=== PATIENT | male | born 1975 | race Caucasian/White ===

== ENCOUNTER → 2017-01-11 | Outpatient (REF) | payer OTHER ==
[~2017-01-11] MED LIST: CELE40TA PO; CIPR-249 PO; FLAG500T PO; IBUP80TA PO; PERC5TAB12 PO; SULF-216 PO; TYLE325T5 PO
[2017-01-11 12:45] LABS: MEAN CORPUSCULAR HEMOGLOBIN 31.2 pg (27.0-33.0); MEAN CORPUSCULAR HGB CONC 34.5 g/dl (32.0-36.5); MEAN CORPUSCULAR VOLUME 90.3 fl (80.0-96.0); RED CELL DISTRIBUTION WIDTH 13.3 % (11.5-14.5); WHITE BLOOD COUNT 7.5 K/mm3 (4.0-10.0)
[2017-01-11 13:00] LABS: ALBUMIN 3.9 GM/DL (3.2-5.2); ALBUMIN/GLOBULIN RATIO 1.18 (1.00-1.93); ALKALINE PHOSPHATASE 64 U/L (45-117); ANION GAP 9 MEQ/L (8-16); AST/SGOT 44 U/L (15-37); BILIRUBIN,TOTAL 0.3 MG/DL (0.2-1.0); BLOOD UREA NITROGEN 10 MG/DL (7-18); CALCIUM LEVEL 8.1 MG/DL (8.5-10.1); CARBON DIOXIDE LEVEL 27 MEQ/L (21-32); CHLORIDE LEVEL 104 MEQ/L (98-107); CHOLESTEROL LEVEL 194 MG/DL (<200); CREATININE FOR GFR 0.97 MG/DL (0.70-1.30); GLOMERULAR FILTRATION RATE > 60.0 (>60); GLUCOSE, FASTING 137 MG/DL (70-105); POTASSIUM SERUM 4.3 MEQ/L (3.5-5.1); SODIUM LEVEL 140 MEQ/L (136-145); TOTAL PROTEIN 7.2 GM/DL (6.4-8.2); TRIGLYCERIDES LEVEL 796 MG/DL (<150)
[2017-01-11 13:13] LABS: ALT/SGPT 107 U/L (12-78)
== END ==
LOC: M SFHCADAM 08:42
PROVIDERS: ATTEND Family Medicine
DX: R10.32 Left lower quadrant pain (principal); K76.0 Fatty (change of) liver, not elsewhere classified; R53.83 Other fatigue

== ENCOUNTER → 2017-01-17 | Outpatient (REF) | payer OTHER ==
[2017-01-17 13:59] LABS: ANION GAP 10 MEQ/L (8-16); BLOOD UREA NITROGEN 19 MG/DL (7-18); CALCIUM LEVEL 8.6 MG/DL (8.5-10.1); CARBON DIOXIDE LEVEL 27 MEQ/L (21-32); CHLORIDE LEVEL 105 MEQ/L (98-107); CREATININE FOR GFR 0.93 MG/DL (0.70-1.30); GLOMERULAR FILTRATION RATE > 60.0 (>60); GLUCOSE, FASTING 101 MG/DL (70-105); POTASSIUM SERUM 4.4 MEQ/L (3.5-5.1); SODIUM LEVEL 142 MEQ/L (136-145)
== END ==
LOC: M SFHCADAM 12:35
PROVIDERS: ATTEND Family Medicine
DX: R73.9 Hyperglycemia, unspecified (principal)

== ENCOUNTER 2017-03-25 11:00 | Day surgery (SDC) | payer OTHER ==
[~2017-03-25] VITALS: Ht 185.4 cm; Wt 122.5 kg
[2017-03-25] MEDS ORDERED: metroNIDAZOLE 500 MG in APPROPRIATE DILUENT 1 EA IV ONE (11:45)
[2017-03-25] MEDS ORDERED: LR 1,000 ML IV ONE (11:45)
[2017-03-25] MEDS ORDERED: fentaNYL 100 MCG/2 ML INJECTION (J3010) As Ordered ONE (13:44)
[2017-03-25] MEDS ORDERED: MIDAZOLAM INJ 2 MG/2 ML VIAL (J2250) As Ordered ONE ×2 (13:44→14:12)
[2017-03-25] MEDS ORDERED: LIDOCAINE W/EPINEPHRINE 1% 20ML VIAL As Ordered ONE (13:50)
[2017-03-25] MEDS ORDERED: BUPIVACAINE LIPOSOME/PF 1.3% 20 ML VIAL (13.3MG/ML)(EXPAREL) As Ordered ONE (14:47)
[2017-03-25] MEDS ORDERED: PROPOFOL 200 MG/20 ML VIAL As Ordered ONE (14:57)
[2017-03-25] MEDS ORDERED: LIDOCAINE 2% INJ 100 MG/5 ML SDV (FOR ANES.) As Ordered ONE (14:57)
--- NOTE | 2017-03-25 15:06 | ROOPDOC ---
[facility] Report Of Operation Report of Operation DATE OF PROCEDURE: 03/25/17 PREPROCEDURE DIAGNOSES: recurrent perianal/perirectal abscess, possible anal fistula POSTPROCEDURE DIAGNOSES: same, granuloma from previous abscess sites but no fistula found PROCEDURE: Exam under anesthesia, Debridement granuloma from previous abscess site SURGEON: Jorge Chavez MD AD TERMINAL MAKEUP OPERATOR: ANESTHESIA: spinal ESTIMATED BLOOD LOSS: Approximately 10 mL. COMPLICATIONS: none REMARKS: 41 male who has had a previous deep right sided rectal abscess in 2015 , and has had recurrent left sided abscess and vague rectal pains since then. Patient is suspected to may have an anal fistula. He is brought in to the OR for exam under anesthesia PROCEDURE NOTE: 3 areas where he has had abscess is located from the scar/ hardening of skin and subcutaneous tissue is noted. The most recent one at the anterolateral area on the left where he reports he has had blood come out. Two areas on the right had scarring/granuloma underneath that was debrided and skin left open. DESCRIPTION OF PROCEDURE: Patient was given a dose of Flagyl 500 mg IV for wound prophylaxis. He was brought to the operating room. Spinal anesthesia given and tested in the room. He was then placed in the prone jackknife position. SCD boots and TEDS placed for DVT prophylaxis Nylon tapes placed on his buttocks to stretch and expose the anal verge. The perianal area was then prepped and draped in the usual sterile fashion. On external examination of the anal verge there were 2 areas on the right side where there is punctate pea-sized hardening subcutaneously. Over towards the left side it is a slightly thinned darkened skin were on my previous exam I thought he had a small hematoma present at the area. This was about 2-3 cm away from the anal opening. When all 3 areas there were no skin opening or granulation. The involved speculum was placed in a circumferentially examined the area of the dentate line to see if there were any obvious internal openings of the fistula and none was found. I then palpated the under direct visualization on the distal rectal area where he had a previous deep abscess back in 2014 and I do not see any induration or felt any fluctuance. At this point I opened up all the 3 areas on the skin were assigned noted the above abnormalities and more he had previous abscesses developed. There were some small subcutaneous tissue hardening on the right side either some scar tissue or granuloma formation but beyond this I did not see any tract going into the anal opening. This was further debrided and curetted and then left open. Similarly on the left side I opened up the skin where there was a previous either hematoma or abscess without recently developed. Again after removing that then portion of the skin there was no obvious ongoing inflammation or fistulous tract that I could find. I again went back with the anal speculum and inspected the sidewalls of the anal canal at the dentate line were I would expect an internal opening based on those 3 areas that I unroofed and opened up and no active inflammation, granulation or fistulous opening was found. At this point a contaminated procedure. Of the facet denies gauze was placed over the anal verge covering all the 3 open wounds. Bulky gauze dressing and postop underwear was then placed and used to cover the incision and catch expected drainage. Patient was then promptly awakened, transferred to the stretcher and brought to recovery room stable BUCK CHAVEZ MD Mar 25, 2017 15:06
[2017-03-25] MEDS ORDERED: fentaNYL 100 MCG/2 ML INJECTION (J3010) IV PRN (15:30)
[2017-03-25] MEDS ORDERED: LR 1,000 ML IV SCH (15:30)
[2017-03-25] MEDS ORDERED: ONDANSETRON 4MG/2ML VIAL (J2405) IV PRN (15:30)
[2017-03-25] MEDS ORDERED: METOCLOPRAMIDE INJ 10MG/2ML VIAL (J2765) IV PRN (15:30)
[2017-03-25] MEDS ORDERED: NORCO, ANEXSIA 5/325MG TABLET (HYDROcodone/ACETAMINOPHEN) PO PRN (15:30)
[2017-03-25] MEDS ORDERED: PERCOCET 5MG/325MG TAB PO PRN (15:30)
[2017-03-25 18:00] VITALS: BP 141/76
== END 2017-03-25 18:05 | disposition home or self-care (01) ==
LOC: M SDC 11:00
PROVIDERS: ATTEND Surgery
DX: L92.9 Granulomatous disorder of the skin and subcutaneous tissue, unspecified (principal); F41.9 Anxiety disorder, unspecified; F32.9 Major depressive disorder, single episode, unspecified; Z79.899 Other long term (current) drug therapy; F17.210 Nicotine dependence, cigarettes, uncomplicated
CPT/HCPCS: 11042; J2250; J3010

== ENCOUNTER → 2017-08-18 | Outpatient (REF) | payer OTHER ==
[2017-08-18 13:23] LABS: ALBUMIN 4.2 GM/DL (3.2-5.2); ALBUMIN/GLOBULIN RATIO 1.17 (1.00-1.93); ALKALINE PHOSPHATASE 63 U/L (45-117); ALT/SGPT 116 U/L (12-78); ANION GAP 8 MEQ/L (8-16); AST/SGOT 46 U/L (7-37); BILIRUBIN,TOTAL 0.4 MG/DL (0.2-1.0); BLOOD UREA NITROGEN 12 MG/DL (7-18); CARBON DIOXIDE LEVEL 29 MEQ/L (21-32); CHLORIDE LEVEL 102 MEQ/L (98-107); CHOLESTEROL LEVEL 208 MG/DL (<200); CHOLESTEROL RISK RATIO 5.942 (<5); CREATININE FOR GFR 0.89 MG/DL (0.70-1.30); GLOMERULAR FILTRATION RATE > 60.0 (>60); GLUCOSE, FASTING 116 MG/DL (70-100); HDL CHOLESTEROL 35 MG/DL (>40); LDL CHOLESTEROL 104.2 MG/DL (<100); NON-HDL-C 173 MG/DL; POTASSIUM SERUM 4.8 MEQ/L (3.5-5.1); SODIUM LEVEL 139 MEQ/L (136-145); TOTAL PROTEIN 7.8 GM/DL (6.4-8.2); TRIGLYCERIDES LEVEL 344 MG/DL (<150)
[2017-08-18 13:40] LABS: ESTIMATED AVERAGE GLUCOSE 128 MG/DL (60-110); HEMOGLOBIN A1c 6.1 %
== END ==
LOC: M SFHCADAM 08:37
DX: E78.1 Pure hyperglyceridemia (principal); R73.03 Prediabetes

== ENCOUNTER 2017-10-21 13:56 | Emergency (ER) | payer OTHER ==
[2017-10-21 14:42] LABS: BASO % 0.2 % (0.0-1.0); EOS # 0.1 10^3/uL (0.0-0.50); HEMATOCRIT 41.5 % (42.0-52.0); HEMOGLOBIN 14.4 g/dl (13.5-17.5); IMMATURE GRANULOCYTE % 0.2 % (0-3.0); LYMPH # 1.6 10^3/uL (1.5-4.5); LYMPH % 15.9 % (24.0-44.0); MEAN CORPUSCULAR HEMOGLOBIN 29.9 pg (27.0-33.0); MEAN CORPUSCULAR HGB CONC 34.7 g/dl (32.0-36.5); MEAN CORPUSCULAR VOLUME 86.3 fl (80.0-96.0); MONO # 1.3 10^3/uL (0.0-0.8); MONO % 12.3 % (0.0-5.0); NEUTROPHILS # 7.2 10^3/uL (1.8-7.7); NEUTROPHILS % 70.4 % (36.0-66.0); PLATELET COUNT, AUTOMATED 176 10^3/uL (150-450); RED BLOOD COUNT 4.81 10^6/uL (4.30-6.10); RED CELL DISTRIBUTION WIDTH 13.2 % (11.5-14.5); WHITE BLOOD COUNT 10.2 10^3/uL (4.0-10.0)
[2017-10-21 15:03] LABS: ANION GAP 7 MEQ/L (8-16); BLOOD UREA NITROGEN 14 MG/DL (7-18); CALCIUM LEVEL 8.5 MG/DL (8.5-10.1); CARBON DIOXIDE LEVEL 26 MEQ/L (21-32); CHLORIDE LEVEL 106 MEQ/L (98-107); CREATININE FOR GFR 0.85 MG/DL (0.70-1.30); GLOMERULAR FILTRATION RATE > 60.0 (>60); GLUCOSE, FASTING 81 MG/DL (70-100); POTASSIUM SERUM 4.1 MEQ/L (3.5-5.1); SODIUM LEVEL 139 MEQ/L (136-145)
[2017-10-21 15:06] LABS: LACTIC ACID SEPSIS PROTOCOL 0.9 MMOL/L (0.4-2.0)
== END 2017-10-21 16:55 | disposition home or self-care (01) ==
LOC: M ED 13:56
DX: L03.90 Cellulitis, unspecified (principal); R59.0 Localized enlarged lymph nodes; I45.19 Other right bundle-branch block; K61.1 Rectal abscess; Z79.899 Other long term (current) drug therapy
CPT/HCPCS: 93005

== ENCOUNTER → 2018-09-04 | Outpatient (CLI) | payer BC, OTHER ==
[~2018-09-04] MED LIST changes: +BACT800T5 PO; +VARE1TA
--- NOTE | 2018-09-04 14:04 | REP ---
Left hand series: Four views. History: Pain. Findings: Four views of the left hand demonstrate overall normal mineralization. No fracture is seen. There is no evidence of arthropathy. Impression: Negative radiographs of the left hand. Electronically Signed by Link Garcia MD 09/04/2018 01:55 P
== END ==
LOC: M WUC 12:05
PROVIDERS: ATTEND Physician Assistant
DX: M79.642 Pain in left hand (principal)

== ENCOUNTER → 2019-01-29 | Outpatient (REF) | payer OTHER, SELFPAY ==
[2019-01-29 15:09] LABS: HEMATOCRIT 45.8 % (42.0-52.0); MEAN CORPUSCULAR HEMOGLOBIN 31.5 pg (27.0-33.0); MEAN CORPUSCULAR HGB CONC 34.9 g/dl (32.0-36.5); MEAN CORPUSCULAR VOLUME 90.2 fl (80.0-96.0); PLATELET COUNT, AUTOMATED 222 10^3/uL (150-450); RED BLOOD COUNT 5.08 10^6/uL (4.30-6.10); WHITE BLOOD COUNT 9.6 10^3/uL (4.0-10.0)
[2019-01-29 15:41] LABS: ALBUMIN 4.1 GM/DL (3.2-5.2); ALT/SGPT 58 U/L (12-78); BILIRUBIN,TOTAL 0.3 MG/DL (0.2-1.0); BLOOD UREA NITROGEN 18 MG/DL (7-18); CALCIUM LEVEL 9.2 MG/DL (8.5-10.1); CARBON DIOXIDE LEVEL 29 MEQ/L (21-32); CHLORIDE LEVEL 106 MEQ/L (98-107); CHOLESTEROL LEVEL 207 MG/DL (<200); CHOLESTEROL RISK RATIO 7.666 (<5); CREATININE FOR GFR 0.89 MG/DL (0.70-1.30); FREE T4 0.97 NG/DL (0.76-1.46); GLOMERULAR FILTRATION RATE > 60.0 (>60); GLUCOSE, FASTING 74 MG/DL (70-100); HDL CHOLESTEROL 27 MG/DL (>40); LDL CHOLESTEROL 111 MG/DL (<100); NON-HDL-C 180 MG/DL; POTASSIUM SERUM 4.7 MEQ/L (3.5-5.1); SODIUM LEVEL 141 MEQ/L (136-145); TOTAL PROTEIN 7.2 GM/DL (6.4-8.2); TRIGLYCERIDES LEVEL 346 MG/DL (<150)
[2019-01-31 14:07] LABS: Lyme Disease IgG/IgM Antibodie <0.91 ISR (0.00-0.90); Lyme Disease IgM Ab Quantitati <0.80 index (0.00-0.79)
== END ==
LOC: M SFHCADAM 12:11
PROVIDERS: ATTEND Family Medicine
DX: E78.1 Pure hyperglyceridemia (principal); R73.03 Prediabetes; E78.49 Other hyperlipidemia; K61.1 Rectal abscess; S30.861A Insect bite (nonvenomous) of abdominal wall, initial encounter; W57.XXXA Bitten or stung by nonvenomous insect and other nonvenomous arthropods, initial encounter; Y92.9 Unspecified place or not applicable; Y93.9 Activity, unspecified

== ENCOUNTER → 2019-04-10 | Outpatient (REF) | payer OTHER ==
[2019-04-17 00:14] LABS: ANCA-ATYPICAL <1:20 titer (Neg:<1:20); ANTI-SACCHAROMYCES CEREV. IgA <20.0 Units (0.0-24.9); ANTI-SACCHAROMYCES CEREV. IgG <20.0 Units (0.0-24.9); CYTOPLASMIC NEUTROP AB ANCA-C <1:20 titer (Neg:<1:20); PERINUCLEAR AB ANCA-P <1:20 titer (Neg:<1:20)
== END ==
LOC: M LABDRWAD 19:17
PROVIDERS: ATTEND Specialist
DX: K59.1 Functional diarrhea (principal); K62.5 Hemorrhage of anus and rectum

== ENCOUNTER 2019-06-04 10:39 | Emergency (ER) | payer BC, OTHER ==
[~2019-06-04] VITALS: Ht 185.4 cm; Wt 121.1 kg
[2019-06-04 11:32] LABS: BASO % 0.2 % (0.0-1.0); EOS # 0.2 10^3/uL (0.0-0.5); EOS % 1.3 % (0.0-3.0); HEMATOCRIT 42.1 % (42.0-52.0); HEMOGLOBIN 14.3 g/dl (13.5-17.5); LYMPH # 1.4 10^3/uL (1.5-5.0); LYMPH % 10.5 % (24.0-44.0); MEAN CORPUSCULAR VOLUME 88.4 fl (80.0-96.0); MONO # 1.6 10^3/uL (0.0-0.8); MONO % 12.4 % (0.0-5.0); NEUTROPHILS # 9.6 10^3/uL (1.5-8.5); NEUTROPHILS % 75.3 % (36.0-66.0); PLATELET COUNT, AUTOMATED 203 10^3/uL (150-450); RED BLOOD COUNT 4.76 10^6/uL (4.30-6.10); WHITE BLOOD COUNT 12.8 10^3/uL (4.0-10.0)
[2019-06-04] MEDS ORDERED: GASTROGRAFIN SOLUTION 30ML (Q9963) As Ordered ONE (11:44)
[2019-06-04] MEDS ORDERED: KETOROLAC 30 MG/ML VIAL (J1885) IV ONE (11:45)
[2019-06-04] MEDS ORDERED: NS 1,000 ML IV ONE (11:45)
[2019-06-04] MEDS: GASTROGRAFIN SOLUTION 30ML PO SCH ×2 (11:46→12:16)
[2019-06-04 11:55] LABS: BLOOD UREA NITROGEN 15 MG/DL (7-18); CALCIUM LEVEL 8.5 MG/DL (8.5-10.1); CARBON DIOXIDE LEVEL 26 MEQ/L (21-32); CHLORIDE LEVEL 107 MEQ/L (98-107); CREATININE FOR GFR 0.87 MG/DL (0.70-1.30); GLOMERULAR FILTRATION RATE > 60.0 (>60); GLUCOSE, FASTING 107 MG/DL (70-100); POTASSIUM SERUM 3.9 MEQ/L (3.5-5.1); SODIUM LEVEL 140 MEQ/L (136-145)
[2019-06-04] MEDS ORDERED: ACETAMINOPHEN 500 MG TAB PO ONE (12:15)
[2019-06-04] MEDS ORDERED: ISOVUE-370 76% 100ML VIAL (Q9967) As Ordered ONE (13:20)
--- NOTE | 2019-06-04 14:00 | REP ---
Clinical: Pain with history of rectal fistula. Technique: Axial contrast enhanced images from the lung bases to the pubic symphysis U oozing oral (per protocol) and 100 ml Isovue 370 intravenous contrast material with coronal and sagittal re-formations. Comparison: 11/16/2015 Findings: Perirectal inflammatory stranding is appreciated along with a right perirectal collection measuring approximately 3.2 cm diameter suggesting phlegmon/forming abscess (images 140 - 154). Hepatic steatosis. Spleen, pancreas, gallbladder, bilateral adrenal glands and kidneys are normal. No evidence for bowel obstruction. Normal terminal ileum, cecum and appendix in the right lower quadrant. Pelvis demonstrates normal bladder and age appropriate prostate/seminal vesicles. No ascites. No free air. No significant adenopathy. Abdominal aorta without aneurysm or dissection. Musculoskeletal structures are intact. Lung bases are clear. Impression: Perirectal inflammatory stranding and small forming right perirectal abscess measuring approximately 3 cm diameter. Electronically Signed by Jose Brewer MD 06/04/2019 01:51 P
[2019-06-04] MEDS ORDERED: BACT800T5 PO (15:07)
[2019-06-04 15:19] VITALS: BP 133/71
--- NOTE | 2019-06-06 08:12 | ED PDOC ---
Post-Departure Follow-Up dr connell faxed formal report of ct abd/p for fu Shan Burch MD Jun 06, 2019 08:12
== END 2019-06-04 15:22 | disposition home or self-care (01) ==
LOC: M ED 10:39
DX: K61.1 Rectal abscess (principal); R50.9 Fever, unspecified; I10 Essential (primary) hypertension; K57.31 Diverticulosis of large intestine without perforation or abscess with bleeding; F41.9 Anxiety disorder, unspecified; Z87.19 Personal history of other diseases of the digestive system; F17.210 Nicotine dependence, cigarettes, uncomplicated; Z79.899 Other long term (current) drug therapy
CPT/HCPCS: 74177; 80048; 83605; 85025; 87040; 96361; 96374; 99284; J1885; Q9967

== ENCOUNTER → 2019-08-09 | Outpatient (REF) | payer OTHER | LOC: M LAB REF 13:22 | PROVIDERS: ATTEND Orthopaedic Surgery Sports Medicine | DX: M71.322 Other bursal cyst, left elbow (principal) ==

== ENCOUNTER → 2020-07-16 | Outpatient (CLI) | payer BC, OTHER | LOC: M LABSMTC 10:38 | PROVIDERS: ATTEND Pediatrics | DX: Z20.822 Contact with and (suspected) exposure to COVID-19 (principal) | CPT/HCPCS: C9803; U0003 ==

== ENCOUNTER → 2020-12-31 | Outpatient (REF) | payer OTHER ==
[2020-12-31 15:06] LABS: HEMATOCRIT 48.7 % (42.0-52.0); HEMOGLOBIN 16.4 g/dl (13.5-17.5); MEAN CORPUSCULAR HEMOGLOBIN 30.2 pg (27.0-33.0); MEAN CORPUSCULAR HGB CONC 33.7 g/dl (32.0-36.5); MEAN CORPUSCULAR VOLUME 89.7 fl (80.0-96.0); PLATELET COUNT, AUTOMATED 216 10^3/uL (150-450); RED BLOOD COUNT 5.43 10^6/uL (4.30-6.10); WHITE BLOOD COUNT 7.8 10^3/uL (4.0-10.0)
[2020-12-31 15:19] LABS: HEMOGLOBIN A1c 5.6 %
[2020-12-31 15:26] LABS: ALBUMIN 4.2 GM/DL (3.2-5.2); ALT/SGPT 66 U/L (12-78); BILIRUBIN,TOTAL 0.4 MG/DL (0.2-1.0); BLOOD UREA NITROGEN 19 MG/DL (7-18); CALCIUM LEVEL 9.4 MG/DL (8.5-10.1); CARBON DIOXIDE LEVEL 30 MEQ/L (21-32); CHLORIDE LEVEL 106 MEQ/L (98-107); CHOLESTEROL LEVEL 203 MG/DL (<200); CREATININE FOR GFR 0.85 MG/DL (0.70-1.30); FREE T4 0.98 NG/DL (0.76-1.46); GLOMERULAR FILTRATION RATE > 60.0 (>60); GLUCOSE, FASTING 96 MG/DL (70-100); HDL CHOLESTEROL 28 MG/DL (>40); NON-HDL-C 175 MG/DL; POTASSIUM SERUM 4.7 MEQ/L (3.5-5.1); SODIUM LEVEL 139 MEQ/L (136-145); TOTAL PROTEIN 7.7 GM/DL (6.4-8.2); TRIGLYCERIDES LEVEL 471 MG/DL (<150)
== END ==
LOC: M SFHCADAM 10:45
PROVIDERS: ATTEND Family Medicine
DX: K20.90 Esophagitis, unspecified without bleeding (principal); E78.1 Pure hyperglyceridemia; F41.1 Generalized anxiety disorder; R73.03 Prediabetes

== ENCOUNTER → 2020-12-31 | Outpatient (CLI) | payer BC, OTHER ==
--- NOTE | 2020-12-31 11:35 | REP ---
INDICATION: PERSISTENT COUGH FOR 3 WEEKS OR LONGER COMPARISON: None. TECHNIQUE: PA/Lateral FINDINGS: Lungs: Clear, no infiltrate. Heart: Normal in size. Mediastinum: Mediastinal silhouette unremarkable. Pleural angles: Unremarkable.. Bones and soft tissues: Unremarkable. There is mild elevation of the right hemidiaphragm. IMPRESSION: No acute pulmonary disease. <Electronically signed by Dustin Portillo > 12/31/20 2405
== END ==
LOC: M ADAMS 11:03
PROVIDERS: ATTEND Family Medicine
DX: R05 Cough (principal)

== ENCOUNTER 2022-04-05 08:48 | Emergency (ER) | payer BC, OTHER ==
[~2022-04-05] VITALS: Ht 185.4 cm; Wt 118.8 kg
[2022-04-05 11:51] LABS: BASO % 0.4 % (0.0-1.0); EOS # 0.2 10^3/uL (0.0-0.5); HEMATOCRIT 47.5 % (42.0-52.0); HEMOGLOBIN 16.3 g/dl (13.5-17.5); LYMPH # 2.4 10^3/uL (1.5-5.0); LYMPH % 26.3 % (24.0-44.0); MEAN CORPUSCULAR HEMOGLOBIN 30.1 pg (27.0-33.0); MEAN CORPUSCULAR HGB CONC 34.3 g/dl (32.0-36.5); MEAN CORPUSCULAR VOLUME 87.8 fl (80.0-96.0); MONO # 0.9 10^3/uL (0.0-0.8); MONO % 9.9 % (2.0-8.0); NEUTROPHILS # 5.6 10^3/uL (1.5-8.5); NEUTROPHILS % 61.1 % (36.0-66.0); PLATELET COUNT, AUTOMATED 245 10^3/uL (150-450); RED BLOOD COUNT 5.41 10^6/uL (4.30-6.10); WHITE BLOOD COUNT 9.2 10^3/uL (4.0-10.0)
[2022-04-05 12:25] LABS: RSV AMPLIFICATION NEGATIVE (NEGATIVE)
[2022-04-05 13:07] LABS: ALBUMIN 4.1 GM/DL (3.2-5.2); ALT/SGPT 41 U/L (12-78); BILIRUBIN,DIRECT < 0.1 MG/DL (0.0-0.2); BILIRUBIN,TOTAL 0.4 MG/DL (0.2-1.0); BLOOD UREA NITROGEN 16 MG/DL (7-18); CALCIUM LEVEL 9.2 MG/DL (8.5-10.1); CARBON DIOXIDE LEVEL 29 MEQ/L (21-32); CHLORIDE LEVEL 106 MEQ/L (98-107); CREATININE FOR GFR 0.92 MG/DL (0.70-1.30); GLOMERULAR FILTRATION RATE > 60.0 (>60); GLUCOSE, FASTING 84 MG/DL (70-100); LIPASE 698 U/L (73-393); POTASSIUM SERUM 4.6 MEQ/L (3.5-5.1); SODIUM LEVEL 138 MEQ/L (136-145); TOTAL PROTEIN 7.5 GM/DL (6.4-8.2)
[2022-04-05] MEDS ORDERED: ISOVUE-370 76% 100ML VIAL As Ordered ONE (13:17)
[2022-04-05 14:31] VITALS: BP 131/83
== END 2022-04-05 14:33 | disposition home or self-care (01) ==
LOC: M ED 08:48
DX: R10.9 Unspecified abdominal pain (principal); R93.2 Abnormal findings on diagnostic imaging of liver and biliary tract; R97.8 Other abnormal tumor markers; I45.10 Unspecified right bundle-branch block; F41.9 Anxiety disorder, unspecified; F32.A Depression, unspecified; K76.0 Fatty (change of) liver, not elsewhere classified; F17.200 Nicotine dependence, unspecified, uncomplicated; Z79.82 Long term (current) use of aspirin; Z79.899 Other long term (current) drug therapy
CPT/HCPCS: 36415; 71275; 76705; 80048; 80076; 83690; 85025; 87631; 93005; 99284; Q9967

== ENCOUNTER → 2022-04-16 | Outpatient (REF) | payer BC | LOC: M SFHCADAM 14:21 | PROVIDERS: ATTEND Family Medicine | DX: R74.8 Abnormal levels of other serum enzymes (principal); Z53.8 Procedure and treatment not carried out for other reasons ==

== ENCOUNTER → 2022-04-19 | Outpatient (REF) | payer BC ==
[2022-04-19 16:16] LABS: ALBUMIN 3.8 GM/DL (3.2-5.2); ALT/SGPT 39 U/L (12-78); BILIRUBIN,TOTAL 0.3 MG/DL (0.2-1.0); BLOOD UREA NITROGEN 15 MG/DL (7-18); CARBON DIOXIDE LEVEL 27 MEQ/L (21-32); CHLORIDE LEVEL 108 MEQ/L (98-107); CREATININE FOR GFR 0.92 MG/DL (0.70-1.30); GLOMERULAR FILTRATION RATE > 60.0 (>60); GLUCOSE, FASTING 87 MG/DL (70-100); LIPASE 241 U/L (73-393); POTASSIUM SERUM 5.3 MEQ/L (3.5-5.1); SODIUM LEVEL 139 MEQ/L (136-145)
== END ==
LOC: M SFHCADAM 08:14
PROVIDERS: ATTEND Family Medicine
DX: R74.8 Abnormal levels of other serum enzymes (principal)

== ENCOUNTER → 2022-04-20 | Outpatient (CLI) | payer BC, OTHER ==
[~2022-04-20] MED LIST changes: +GASTROGRAFIN SOLUTION 30ML As Ordered ONE; +ISOVUE-370 76% 100ML VIAL As Ordered ONE
== END ==
LOC: M RAD 13:52
PROVIDERS: ATTEND Family Medicine
DX: R10.13 Epigastric pain (principal)

== ENCOUNTER → 2024-10-24 | Outpatient (CLI) | payer BC ==
[~2024-10-24] MED LIST changes: -GASTROGRAFIN SOLUTION 30ML As Ordered ONE; -ISOVUE-370 76% 100ML VIAL As Ordered ONE
== END ==
LOC: M RAD 16:57
PROVIDERS: ATTEND Family Medicine
DX: D13.5 Benign neoplasm of extrahepatic bile ducts (principal); K57.90 Diverticulosis of intestine, part unspecified, without perforation or abscess without bleeding; K40.90 Unilateral inguinal hernia, without obstruction or gangrene, not specified as recurrent